=== PATIENT | female | born 1950 | race Caucasian/White ===

== ENCOUNTER 2018-09-15 10:30 | Inpatient (IN) | payer MEDICARE, MEDICAID ==
[2018-09-16] MEDS ORDERED: DEXTROMETHORPHAN HBR PO PRN (17:17)
[2018-09-16] MEDS ORDERED: Albuterol-Ipratrop 3 mg / 0.5 (3 ml) UD IH PRN (17:17)
[2018-09-16] MEDS ORDERED: Pneumococcal 23-Valent Vaccine IM ONE (17:42)
[2018-09-16] MEDS ORDERED: Influenza Vaccine (5 YR UP)/PF 60 MCG/0.5 ML SYR IM ONE ×2 (17:45→19:30)
[2018-09-16] MEDS: Budesonide 0.5 mg/2 ml Inhal Susp UD INH SCH ×2 (19:59→20:51)
[2018-09-16] MEDS ORDERED: Insulin Lispro (humaLOG) 100 Units/ml Inj SC SCH (22:00)
[2018-09-16] MEDS: Insulin Lispro (humaLOG) 100 Units/ml Inj SC SCH (22:00)
[2018-09-16] MEDS ORDERED: guaiFENesin DM 100 mg-10 mg/5 ml UD PO PRN (23:44)
[2018-09-17 06:22] LABS: BASO % 0.2 % (0.0-2.0); EOS # 0.2 K/uL (0.0-0.7); EOS % 2.2 % (0.0-4.0); HEMOGLOBIN 13.8 g/dL (12.0-16.0); LYMPH # 2.9 K/uL (1.0-4.3); LYMPH % 29.8 % (20.0-40.0); MEAN CELL VOLUME 84.8 fl (81.0-99.0); MEAN CORPUSCULAR HEMOGLOBIN 27.8 pg (27.0-31.0); MEAN CORPUSCULAR HGB CONC 32.8 g/dL (33.0-37.0); MEAN PLATELET VOLUME 8.1 fl (7.2-11.7); MONO # 0.6 K/uL (0.0-0.8); MONO % 6.7 % (0.0-10.0); NEUT # 5.8 K/uL (1.8-7.0); NEUT % 61.1 % (50.0-75.0); RBC 4.95 Mil/uL (3.80-5.20); RED CELL DISTRIBUTION WIDTH 13.2 % (11.5-14.5); WHITE BLOOD COUNT 9.6 K/uL (4.8-10.8)
[2018-09-17 06:31] VITALS: BMI 35.5
[2018-09-17 06:36] LABS: ALB/GLOB RATIO 1.2 (1.0-2.1); ALBUMIN 3.8 g/dL (3.5-5.0); ALT/SGPT 21 U/L (9-52); AST/SGOT 23 U/L (14-36); BLOOD UREA NITROGEN 22 mg/dl (7-17); GFR NON-AFRICAN AMERICAN > 60
[2018-09-17] MEDS: Insulin Lispro (humaLOG) 100 Units/ml Inj SC SCH ×4 (07:42→21:14)
[2018-09-17] MEDS: Insulin Detemir 100 Units/ml Inj SC SCH (07:43)
[2018-09-17] MEDS: Budesonide 0.5 mg/2 ml Inhal Susp UD INH SCH ×3 (08:13→20:01)
[2018-09-17] MEDS: Fluticasone-Salmeterol 250-50mcg Diskus IH SCH ×2 (08:47→17:57)
[2018-09-17] MEDS: Ranolazine 500 mg Extended Release Tablets PO SCH ×2 (08:48→17:58)
[2018-09-17] MEDS: Pantoprazole 40 mg EC Tab PO SCH (08:48)
[2018-09-17] MEDS: Enoxaparin 40 mg Syringe SC SCH (08:49)
[2018-09-17] MEDS ORDERED: Patient's Own Med (Arformoterol [Brovana] 15 MCG) IH SCH (09:00)
[2018-09-17] MEDS ORDERED: Pneumococcal 23-Valent Vaccine IM ONE (12:00)
[2018-09-17] MEDS: Influenza Vaccine 60 mcg/0.5 mL SYR (4YR UP) IM ONE ×2 (13:59)
--- NOTE | 2018-09-17 20:08 | CP.PCM.CON ---
History of Present Illness - History of Present Illness History of Present Illness: 67 year old female admitted to acute rehab with diagnosis of CVA, status post blurred vision and dizziness , with PMH of HTN, DM, CAD, CABG Review of Systems - Neurological Neurological: Disequilibrium, Dizziness, Other Visual Disturbances Past Patient History - Past Medical History & Family History Past Medical History?: Yes - Past Social History Smoking Status: Never Smoked - CARDIAC Hx Hypertension: Yes - PULMONARY Hx Respiratory Disorders: Yes Hx Asthma: Yes Hx Bronchitis: No Hx Chronic Obstructive Pulmonary Disease (COPD): Yes Hx Emphysema: No Hx Lung Cancer: No Hx Pneumonia: Yes Hx Pulmonary Edema: No Hx Pulmonary Embolism: No Hx Respiratory Aspiration: No Hx Respiratory Tract Infection: No Hx Sleep Apnea: No Hx Tuberculosis: No - NEUROLOGICAL Hx Neurological Disorder: Yes Hx Alzheimer's Disease: No HX Cerebrovascular Accident: Yes Hx Dementia: No Hx Dizziness: Yes Hx Meningitis: No Hx Migraine: No Hx Multiple Sclerosis: No Hx Paralysis: No Hx Parkinson's Disease: No Hx Seizures: No Hx Syncope: No Hx Transient Ischemic Attacks (TIA): No Hx Vertigo: No Other/Comment: [place] RIGHT SIDE AND BACK - HEENT Hx HEENT Problems: Yes Hx Blind: No Hx Cataracts: Yes Hx Deafness: No Hx Difficulty Chewing: No Hx Epistaxis: No Hx Glaucoma: No Hx Macular Degeneration: No Hx Sinusitis: No - RENAL Hx Chronic Kidney Disease: No Hx Dialysis: No Hx Kidney Stones: No Hx Neurogenic Bladder: No Hx Pyelonephritis: No Hx Renal (Kidney) Cancer: No Hx Renal Failure: No - ENDOCRINE/METABOLIC Hx Diabetes Mellitus Type 2: Yes - HEMATOLOGICAL/ONCOLOGICAL Hx Blood Disorders: No Hx AIDS: No Hx Anemia: No Hx Blood Transfusions: Yes Hx Blood Transfusion Reaction: No Hx Bruising: No Hx Cancer: No Hx Chemotherapy: No Hx Cirrhosis: No Hx Gum Bleeding: No Hx Hemophilia: No Hx Hepatitis A: No Hx Hepatitis B: No Hx Hepatitis C: No Hx Human Immunodeficiency Virus (HIV): No Hx Leukemia: No Hx Metastesis: No Hx Shingles: No Hx Sickle Cell Disease: No Hx Unexplained Bleeding: No Hx von Willebrand's Disease: No - INTEGUMENTARY Hx Dermatological Problems: Yes (FUNGUS FEET) Hx Basil Cell: No Hx Lester: No Hx Cellulitis: No Hx Eczema: No Hx Melanoma: No Hx Psoriasis: No Hx Squamous Cell: No - MUSCULOSKELETAL/RHEUMATOLOGICAL Hx Musculoskeletal Disorders: No Hx Arthritis: Yes Hx Back Pain: Yes Hx Degenerative Joint Disease: No Hx Falls: No Hx Fractures: No Hx Gout: No Hx Herniated Disk: No Hx Myasthenia Gravis: No Hx Osteoarthritis: No Hx Osteomyelitis: No Hx Osteoporosis: No Hx Rhabdomyolysis: No Hx Rheumatoid Arthritis: No Hx Spinal Stenosis: No Hx Unsteady Gait: Yes - GASTROINTESTINAL Hx Gastrointestinal Disorders: No Hx Bowel Surgery: Yes Hx Clostridium Difficile: No Hx Colitis: No Hx Colostomy: No Hx Constipation: Yes Hx Crohn's Disease: No Hx Diarrhea: No Hx Diverticulitis: No Hx Esophageal Varices: No Hx Fatty Liver Disease: No Hx Gall Bladder Disease: No Hx Gastritis: Yes Hx Gastroesophageal Reflux: Yes Hx Hemorrhoids: No Hx Ileostomy: No Hx Irritable Bowel: No Hx Liver Failure: No Hx Nausea: No Hx Pancreatitis: No HX Swallowing Problems: No Hx Ulcer: No Hx Vomiting: No Other/Comment: gb removed - GENITOURINARY/GYNECOLOGICAL Hx Genitourinary Disorders: No Hx Bladder Cancer: No Hx Bladder Stone: No Hx Cervical Cancer: No Hx Hematuria: No Hx Incontinence: No Hx Ovarian Cancer: No Hx Postmenopausal Bleeding: No Hx Reproductive Disorders: No Hx Sexually Transmitted Disorders: No Hx Uterine Cancer: No Hx Urinary Tract Infection: No - PSYCHIATRIC Hx Psychophysiologic Disorder: No Hx Anxiety: Yes Hx Bipolar Disorder: No Hx Depression: No Hx Emotional Abuse: No Hx Hallucinations: No Hx Panic Symptoms: No Hx Paranoia: No Hx Post Traumatic Stress Disorder: No Hx Psychosis: No Hx Physical Abuse: No Hx Schizophrenia: No Hx Sexual Abuse: No Hx Substance Use: No - SURGICAL HISTORY Hx Surgeries: Yes Hx Abdominal Aortic Aneurysm Repair: No Hx Amputation: No Hx Angiogram: No Hx Angioplasty: No Hx Appendectomy: No Hx Arteriovenous Shunt: No Hx Arthroscopy: No Hx Bile Duct Stent: No Hx Breast Biopsy: No Hx Cataract Extraction: No Hx Cardiac Catheterization: Yes Hx Carotid Endarterectomy: No Hx Section: No Hx Cholecystectomy: Yes Hx Coronary Artery Bypass Graft: No Hx Coronary Stent: No Hx Dilation and Curettage: No Hx Eye Surgery: No Hx Femoral-Popliteal Bypass Graft: No Hx Gastric Bypass Surgery: No Hx Herniorrhaphy: No Hx Hysterectomy: No Hx Joint Replacement: No Hx Kidney Transplant: No Hx Liver Transplant: No Hx Mastectomy: No Hx Musculoskeletal Surgery: No Hx Open Heart Surgery: Yes Hx Open Reduction Internal Fixation: No Hx Orthopedic Surgery: No Hx Parathyroidectomy: No Hx Penile Implant: No Hx Pulmonary Surgery: No Hx Splenectomy: No Hx Thyroidectomy: No Hx Tonsillectomy: No Hx Tubal Ligation: No Hx Valve Replacement: No Hx Vascular Surgery: No Hx Vascular Access Device: No Other/Comment: SOMETHING ON RIGHT SIDE OF ABDOMEN; CAN'T EXPLAIN PER DAUGHTER; ONLY RECEIVED 2 SUTURES - ANESTHESIA Hx Anesthesia: Yes Hx Anesthesia Reactions: No Hx Malignant Hyperthermia: No Has any member of the family had a problem w/ anesthesia?: No Meds Allergies/Adverse Reactions: Allergies Allergy/AdvReac Type Severity Reaction Status Date / Time No Known Allergies Allergy Verified 05/24/15 07:30 - Medications Medications: Current Medications Acetaminophen (Tylenol 325mg Tab) 650 mg PO Q6 PRN PRN Reason: .Pain (4-10) Albuterol/Ipratropium (Duoneb 3 Mg/0.5 Mg (3 Ml) Ud) 3 ml IH Q6 PRN PRN Reason: Cough and congestion Aspirin (Aspirin) 325 mg PO DAILY [facility] Last Admin: 09/17/18 08:49 Dose: 325 mg Atorvastatin Calcium (Lipitor) 40 mg PO HS [facility] Last Admin: 09/16/18 22:10 Dose: 40 mg Budesonide (Pulmicort Respules) 0.5 mg INH Q12 [facility] Last Admin: 09/17/18 19:29 Dose: 0.5 mg Clopidogrel Bisulfate (Plavix) 75 mg PO DAILY [facility] Last Admin: 09/17/18 08:48 Dose: 75 mg Docusate Sodium (Colace) 100 mg PO BID PRN PRN Reason: Constipation Enoxaparin Sodium (Lovenox) 40 mg SC DAILY [facility]; Protocol Last Admin: 09/17/18 08:49 Dose: 40 mg Guaifenesin/Dextromethorphan (Robitussin Dm) 5 ml PO Q4 PRN PRN Reason: Cough Insulin Detemir (Levemir) 6 units SC ACB [facility] Last Admin: 09/17/18 07:43 Dose: 6 unit Insulin Human Lispro (Humalog) 0 units SC ACHS [facility]; Protocol Last Admin: 09/17/18 17:57 Dose: 1 unit Lisinopril (Zestril) 10 mg PO DAILY [facility] Last Admin: 09/17/18 08:48 Dose: 10 mg Metformin HCl (Glucophage) 500 mg PO BIDWM [facility] Last Admin: 09/17/18 17:58 Dose: 500 mg Metoprolol Tartrate (Lopressor) 50 mg PO BID [facility] Last Admin: 09/17/18 17:57 Dose: 50 mg Montelukast Sodium (Singulair) 10 mg PO HS [facility] Last Admin: 09/16/18 22:10 Dose: 10 mg Pantoprazole Sodium (Protonix Ec Tab) 40 mg PO DAILY [facility] Last Admin: 09/17/18 08:48 Dose: 40 mg Ranolazine (Ranexa) 500 mg PO BID [facility] Last Admin: 09/17/18 17:58 Dose: 500 mg Fluticasone/Salmeterol (Advair Diskus 250/50) 1 puff IH BID [facility] Last Admin: 09/17/18 17:57 Dose: 1 puff Sitagliptin Phosphate (Januvia) 100 mg PO DAILY [facility] Last Admin: 09/17/18 08:48 Dose: 100 mg Physical Exam - Constitutional Appears: Well - Head Exam Head Exam: ATRAUMATIC, NORMAL INSPECTION, NORMOCEPHALIC - Eye Exam Eye Exam: EOMI, Normal appearance Pupil Exam: NORMAL ACCOMODATION, PERRL - ENT Exam ENT Exam: Mucous Membranes Moist, Normal Exam - Neck Exam Neck exam: Positive for: Normal Inspection - Respiratory Exam Respiratory Exam: Clear to Auscultation Bilateral, NORMAL BREATHING PATTERN - Cardiovascular Exam Cardiovascular Exam: REGULAR RHYTHM - GI/Abdominal Exam GI & Abdominal Exam: Normal Bowel Sounds - Rectal Exam Rectal Exam: NORMAL INSPECTION - Exam External exam: NORMAL EXTERNAL EXAM - Extremities Exam Extremities exam: Positive for: normal inspection - Back Exam Back exam: NORMAL INSPECTION - Neurological Exam Neurological exam: Alert - Psychiatric Exam Psychiatric exam: Normal Affect - Skin Skin Exam: Normal Color Results - Vital Signs Recent Vital Signs: Last Vital Signs Temp 97.4 F L 09/17/18 20:00 Pulse 70 09/17/18 20:00 Resp 20 09/17/18 20:00 BP 126/66 09/17/18 20:00 Pulse Ox 99 09/17/18 20:00 - Labs Result Diagrams: 09/17/18 05:35 09/17/18 05:35 Labs: Laboratory Results - last 24 hr 09/16/18 09/17/18 09/17/18 20:53 05:35 05:35 WBC 9.6 RBC 4.95 Hgb 13.8 Hct 42.0 MCV 84.8 MCH 27.8 MCHC 32.8 L RDW 13.2 Plt Count 222 MPV 8.1 Neut % (Auto) 61.1 Lymph % (Auto) 29.8 [place] % (Auto) 6.7 Eos % (Auto) 2.2 Baso % (Auto) 0.2 Neut # (Auto) 5.8 Lymph # (Auto) 2.9 [place] # (Auto) 0.6 Eos # (Auto) 0.2 Baso # (Auto) 0.0 Sodium 137 Potassium 4.1 Chloride 95 L Carbon Dioxide 28 Anion Gap 18 BUN 22 H Creatinine 0.8 Est GFR ( Amer) > 60 Est GFR (Non-Af Amer) > 60 POC Glucose (mg/dL) 213 H Random Glucose 201 H Calcium 10.0 Total Bilirubin 0.5 AST 23 ALT 21 Alkaline Phosphatase 143 H Total Protein 7.2 Albumin 3.8 Globulin 3.3 Albumin/Globulin Ratio 1.2 09/17/18 09/17/18 09/17/18 06:24 11:07 15:38 WBC RBC Hgb Hct MCV MCH MCHC RDW Plt Count MPV Neut % (Auto) Lymph % (Auto) [place] % (Auto) Eos % (Auto) Baso % (Auto) Neut # (Auto) Lymph # (Auto) [place] # (Auto) Eos # (Auto) Baso # (Auto) Sodium Potassium Chloride Carbon Dioxide Anion Gap BUN Creatinine Est GFR ( Amer) Est GFR (Non-Af Amer) POC Glucose (mg/dL) 176 H 289 H 194 H Random Glucose Calcium Total Bilirubin AST ALT Alkaline Phosphatase Total Protein Albumin Globulin Albumin/Globulin Ratio Assessment & Plan (1) CVA (cerebral vascular accident) Assessment and Plan: Also history of DM, HTN, CAD, CABG. plan for physical, occupational, rec and speech therapy program. To write for overall plan of care Status: Acute
--- NOTE | 2018-09-17 20:12 | PCM.OPOC ---
Physiatry Overall Plan of Care - Overall Plan of Care Estimated Length of Stay in Weeks: 3 Rehab Impairment: Mobility, Gait, Cognition, Speech, Balance, Coordination Rehab/Medical Prognosis: Fair - Anticipated Interventions Physical Therapy:: Yes Occupational Therapy:: Yes Speech Therapy:: Yes Recreational Therapy:: Yes - Therapy Goals Bed Mobility: Independent Ambulation: Supervision Functional Positional Changes:: Independent - Functional Outcomes Functional Outcomes: fair - Discharge Plan Identification of Barriers to Discharge: Home Situation Discharge Destination: Home
[2018-09-18] MEDS: Sodium Chloride 0.9% 500 ML IV SCH ×2 (01:13→06:54)
--- NOTE | 2018-09-18 06:57 | HP ---
HISTORY OF PRESENT ILLNESS: This is a 67-year-old female with history of multiple medical problems who was admitted to acute rehabilitation floor at [facility] after patient sustained a CVA. The patient denied to have any chest pain, shortness of breath. The patient speaks only [place] language, and we have her daughter as sales enablement lead during this encounter. Other review of systems is negative. ALLERGIES: NO KNOWN ALLERGY. MEDICATIONS: Reviewed as per MAR and ordered. SOCIAL HISTORY: No history of smoking, EtOH, or substance abuse. FAMILY HISTORY: Not contributory. PAST MEDICAL HISTORY: CVA, hypertension, type 2 diabetes mellitus, obstructive lung disease, coronary artery disease, status post coronary artery bypass graft, hypercholesterolemia, and hypertension. PHYSICAL EXAMINATION: GENERAL: The patient is not in any cardiopulmonary distress at the time of this examination. VITAL SIGNS: Blood pressure 126/66, temperature 97.4, respiratory rate 20, and pulse 70. HEENT: Pupils equal and reactive to light. Normal-appearing mucosa of the conjunctivae, oropharynx, and nasal membrane mucosa. NECK: Supple. No JVD. No carotid bruit. No lymph node. No thyromegaly. CHEST AND LUNGS: Bilateral symmetrical expansion. Good air exchange. No rales, no rhonchi. CARDIOVASCULAR SYSTEM: PMI not localized. S1, S2. No additional sounds. ABDOMEN: Normoactive bowel sounds. No tenderness. No organomegaly. No masses. EXTREMITIES: No cyanosis, no clubbing, no edema. CENTRAL NERVOUS SYSTEM: The patient is alert, awake, oriented x2, and moves all extremities equally. The patient has possible right temporal visual field defect. ASSESSMENT: Cerebrovascular accident, hypertension, type 2 diabetes mellitus, hypercholesterolemia, coronary artery disease, status post coronary artery bypass graft. PLAN: Continue current management and medications, and continue physical therapy and occupational therapy. Breanna Connolly MD
[2018-09-18] MEDS: Insulin Lispro (humaLOG) 100 Units/ml Inj SC SCH ×4 (06:59→21:27)
[2018-09-18] MEDS: Insulin Detemir 100 Units/ml Inj SC SCH (07:01)
[2018-09-18] MEDS: Budesonide 0.5 mg/2 ml Inhal Susp UD INH SCH ×2 (07:30→20:01)
[2018-09-18] MEDS: Ranolazine 500 mg Extended Release Tablets PO SCH ×2 (09:00→17:28)
[2018-09-18] MEDS: Fluticasone-Salmeterol 250-50mcg Diskus IH SCH ×2 (10:00→17:28)
[2018-09-18] MEDS: Enoxaparin 40 mg Syringe SC SCH (10:10)
[2018-09-18] MEDS: Pantoprazole 40 mg EC Tab PO SCH (10:16)
--- NOTE | 2018-09-18 12:09 | CP.PCM.PN ---
Subjective - Date & Time of Evaluation Date of Evaluation: 09/18/18 Time of Evaluation: 11:00 - Subjective Subjective: no acute complaints at present Objective - Vital Signs/Intake and Output Vital Signs (last 24 hours): Temp Pulse Resp BP Pulse Ox 98.1 F 61 18 108/80 96 09/18/18 07:36 09/18/18 10:13 09/18/18 07:36 09/18/18 10:13 09/18/18 07:36 Intake and Output: 09/18/18 09/18/18 06:59 18:59 Intake Total 800 Balance 800 - Medications Medications: Current Medications Acetaminophen (Tylenol 325mg Tab) 650 mg PO Q6 PRN PRN Reason: .Pain (4-10) Albuterol/Ipratropium (Duoneb 3 Mg/0.5 Mg (3 Ml) Ud) 3 ml IH Q6 PRN PRN Reason: Cough and congestion Aspirin (Aspirin) 325 mg PO DAILY [facility] Last Admin: 09/18/18 09:00 Dose: 325 mg Atorvastatin Calcium (Lipitor) 40 mg PO HS [facility] Last Admin: 09/17/18 21:26 Dose: 40 mg Budesonide (Pulmicort Respules) 0.5 mg INH Q12 [facility] Last Admin: 09/18/18 07:30 Dose: 0.5 mg Clopidogrel Bisulfate (Plavix) 75 mg PO DAILY [facility] Last Admin: 09/18/18 09:00 Dose: 75 mg Docusate Sodium (Colace) 100 mg PO BID PRN PRN Reason: Constipation Enoxaparin Sodium (Lovenox) 40 mg SC DAILY [facility]; Protocol Last Admin: 09/18/18 10:10 Dose: 40 mg Guaifenesin/Dextromethorphan (Robitussin Dm) 5 ml PO Q4 PRN PRN Reason: Cough Insulin Detemir (Levemir) 6 units SC ACB [facility] Last Admin: 09/18/18 07:01 Dose: 6 unit Insulin Human Lispro (Humalog) 0 units SC ACHS [facility]; Protocol Last Admin: 09/18/18 06:59 Dose: 1 unit Lisinopril (Zestril) 10 mg PO DAILY [facility] Last Admin: 09/17/18 08:48 Dose: 10 mg Metformin HCl (Glucophage) 500 mg PO BIDWM [facility] Last Admin: 09/18/18 08:00 Dose: 500 mg Metoprolol Tartrate (Lopressor) 50 mg PO BID [facility] Last Admin: 09/18/18 10:13 Dose: 50 mg Montelukast Sodium (Singulair) 10 mg PO HS [facility] Last Admin: 09/17/18 21:26 Dose: 10 mg Pantoprazole Sodium (Protonix Ec Tab) 40 mg PO DAILY [facility] Last Admin: 09/18/18 10:16 Dose: 40 mg Ranolazine (Ranexa) 500 mg PO BID [facility] Last Admin: 09/18/18 09:00 Dose: 500 mg Fluticasone/Salmeterol (Advair Diskus 250/50) 1 puff IH BID [facility] Last Admin: 09/18/18 10:00 Dose: 1 puff Sitagliptin Phosphate (Januvia) 100 mg PO DAILY [facility] Last Admin: 09/18/18 09:00 Dose: 100 mg - Labs Labs: 09/17/18 05:35 09/17/18 05:35 - Constitutional Appears: Well - Head Exam Head Exam: ATRAUMATIC, NORMAL INSPECTION, NORMOCEPHALIC - Eye Exam Eye Exam: EOMI, Normal appearance, PERRL Pupil Exam: NORMAL ACCOMODATION - ENT Exam ENT Exam: Mucous Membranes Moist, Normal Exam - Neck Exam Neck Exam: Full ROM, Normal Inspection - Respiratory Exam Respiratory Exam: NORMAL BREATHING PATTERN - Cardiovascular Exam Cardiovascular Exam: REGULAR RHYTHM - GI/Abdominal Exam GI & Abdominal Exam: Soft, Normal Bowel Sounds - Rectal Exam Rectal Exam: NORMAL INSPECTION - Exam External exam: NORMAL EXTERNAL EXAM - Extremities Exam Extremities Exam: Full ROM, Normal Capillary Refill - Back Exam Back Exam: NORMAL INSPECTION - Neurological Exam Neurological Exam: Alert Neuro motor strength exam: Left Upper Extremity: 3, Right Upper Extremity: 3, Left Lower Extremity: 3, Right Lower Extremity: 3 - Psychiatric Exam Psychiatric exam: Normal Affect - Skin Skin Exam: Dry Assessment and Plan (1) CVA (cerebral vascular accident) Assessment & Plan: plan for physical, occupational, rec and speech therapy discussed with daughter Status: Acute
[2018-09-19] MEDS: Insulin Detemir 100 Units/ml Inj SC SCH (07:11)
[2018-09-19] MEDS: Insulin Lispro (humaLOG) 100 Units/ml Inj SC SCH ×4 (07:14→21:30)
[2018-09-19] MEDS: Budesonide 0.5 mg/2 ml Inhal Susp UD INH SCH ×3 (08:23→19:08)
[2018-09-19] MEDS: Fluticasone-Salmeterol 250-50mcg Diskus IH SCH ×2 (08:57→17:27)
[2018-09-19] MEDS: Ranolazine 500 mg Extended Release Tablets PO SCH ×2 (08:58→17:30)
[2018-09-19] MEDS: Enoxaparin 40 mg Syringe SC SCH (08:58)
[2018-09-19] MEDS: Pantoprazole 40 mg EC Tab PO SCH (08:59)
[2018-09-20 06:57] LABS: HEMOGLOBIN 14.1 g/dL (12.0-16.0); MEAN CELL VOLUME 85.1 fl (81.0-99.0); MEAN CORPUSCULAR HEMOGLOBIN 28.6 pg (27.0-31.0); MEAN CORPUSCULAR HGB CONC 33.6 g/dL (33.0-37.0); RBC 4.94 Mil/uL (3.80-5.20); RED CELL DISTRIBUTION WIDTH 13.1 % (11.5-14.5); WHITE BLOOD COUNT 10.3 K/uL (4.8-10.8)
[2018-09-20] MEDS: Insulin Detemir 100 Units/ml Inj SC SCH (07:09)
[2018-09-20 07:12] LABS: BLOOD UREA NITROGEN 19 mg/dl (7-17); CALCIUM 9.9 mg/dL (8.4-10.2); GFR NON-AFRICAN AMERICAN > 60
[2018-09-20] MEDS: Insulin Lispro (humaLOG) 100 Units/ml Inj SC SCH ×4 (07:13→21:24)
[2018-09-20] MEDS: Fluticasone-Salmeterol 250-50mcg Diskus IH SCH ×2 (09:16→17:01)
[2018-09-20] MEDS: Enoxaparin 40 mg Syringe SC SCH (09:16)
[2018-09-20] MEDS: Ranolazine 500 mg Extended Release Tablets PO SCH ×2 (09:18→17:02)
[2018-09-20] MEDS: Multivitamin With Minerals Tab PO SCH (09:18)
[2018-09-20] MEDS: Pantoprazole 40 mg EC Tab PO SCH (09:19)
--- NOTE | 2018-09-20 10:38 | CP.PCM.PN ---
Subjective - Date & Time of Evaluation Date of Evaluation: 09/19/18 Time of Evaluation: 12:00 - Subjective Subjective: patient with generalized weakness , no acute complaints Objective - Vital Signs/Intake and Output Vital Signs (last 24 hours): Temp Pulse Resp BP Pulse Ox 97.9 F 68 19 126/65 99 09/20/18 08:54 09/20/18 09:19 09/20/18 08:54 09/20/18 09:19 09/20/18 08:54 - Medications Medications: Current Medications Acetaminophen (Tylenol 325mg Tab) 650 mg PO Q6 PRN PRN Reason: .Pain (4-10) Albuterol/Ipratropium (Duoneb 3 Mg/0.5 Mg (3 Ml) Ud) 3 ml IH Q6 PRN PRN Reason: Cough and congestion Aspirin (Aspirin) [address] [facility] Last Admin: 09/20/18 09:18 Dose: 325 mg Atorvastatin Calcium (Lipitor) [address] [facility] Last Admin: 09/19/18 21:25 Dose: 40 mg Budesonide (Pulmicort Respules) 0.[address] [facility] Last Admin: 09/19/18 19:08 Dose: 0.5 mg Clopidogrel Bisulfate (Plavix) [address] [facility] Last Admin: 09/20/18 09:18 Dose: 75 mg Docusate Sodium (Colace) 100 mg PO BID PRN PRN Reason: Constipation Last Admin: 09/18/18 17:28 Dose: 100 mg Guaifenesin/Dextromethorphan (Robitussin Dm) 5 ml PO Q4 PRN PRN Reason: Cough Insulin Detemir (Levemir) [address] [facility] Last Admin: 09/20/18 07:09 Dose: 6 unit Insulin Human Lispro (Humalog) [address] [facility]; Protocol Last Admin: 09/20/18 07:13 Dose: 2 unit Lisinopril (Zestril) [address] [facility] Last Admin: 09/20/18 09:19 Dose: 10 mg Metformin HCl (Glucophage) [address] [facility] Last Admin: 09/20/18 08:18 Dose: 500 mg Metoprolol Tartrate (Lopressor) [address] [facility] Last Admin: 09/20/18 09:17 Dose: 50 mg Montelukast Sodium (Singulair) [address] [facility] Last Admin: 09/19/18 21:25 Dose: 10 mg Multivitamins/Minerals (Therapeutic-M Tab) [address] [facility] Last Admin: 09/20/18 09:18 Dose: 1 tab Pantoprazole Sodium (Protonix Ec Tab) [address] [facility] Last Admin: 09/20/18 09:19 Dose: 40 mg Ranolazine (Ranexa) [address] [facility] Last Admin: 09/20/18 09:18 Dose: 500 mg Fluticasone/Salmeterol (Advair Diskus 250/50) [address] [facility] Last Admin: 09/20/18 09:16 Dose: 1 puff Sitagliptin Phosphate (Januvia) [address] [facility] Last Admin: 09/20/18 09:19 Dose: 100 mg - Labs Labs: 09/20/18 05:30 09/20/18 05:30 - Constitutional Appears: Well - Head Exam Head Exam: ATRAUMATIC, NORMAL INSPECTION, NORMOCEPHALIC - Eye Exam Eye Exam: EOMI, Normal appearance, PERRL Pupil Exam: NORMAL ACCOMODATION, PERRL - ENT Exam ENT Exam: Mucous Membranes Moist, Normal Exam - Neck Exam Neck Exam: Full ROM, Normal Inspection - Respiratory Exam Respiratory Exam: Clear to Ausculation Bilateral, NORMAL BREATHING PATTERN - Cardiovascular Exam Cardiovascular Exam: REGULAR RHYTHM - GI/Abdominal Exam GI & Abdominal Exam: Normal Bowel Sounds - Rectal Exam Rectal Exam: NORMAL INSPECTION - Exam External exam: NORMAL EXTERNAL EXAM - Extremities Exam Extremities Exam: Full ROM, Normal Capillary Refill, Normal Inspection - Back Exam Back Exam: NORMAL INSPECTION - Neurological Exam Neurological Exam: Alert Neuro motor strength exam: Left Upper Extremity: 3, Right Upper Extremity: 3, Left Lower Extremity: 3, Right Lower Extremity: 3 - Psychiatric Exam Psychiatric exam: Normal Affect - Skin Skin Exam: Normal Color Assessment and Plan (1) CVA (cerebral vascular accident) Assessment & Plan: plan for physical, occupational, rec and speech therapy for range of motion, strengthening, transfers and gait training Status: Acute
[2018-09-20] MEDS: Budesonide 0.5 mg/2 ml Inhal Susp UD INH SCH ×2 (13:14→20:10)
--- NOTE | 2018-09-20 21:42 | PN ---
DATE: 09/19/2018 LATE ENTRY FOR DAILY PROGRESS NOTE SUBJECTIVE: The patient was seen on 09/19/2018. She was not in any cardiopulmonary distress. The patient is cooperative to physical therapy and occupational therapy. PHYSICAL EXAMINATION: VITAL SIGNS: Blood pressure was 111/70, temperature 96.8, respiratory rate 20, and pulse 64. HEENT: Pupils are equal and reactive to light. Normal-appearing mucosa of the conjunctivae, oropharynx and nasal membrane mucosa. NECK: Supple. No JVD. No carotid bruit. No lymph node. No thyromegaly. CHEST AND LUNGS: Bilateral symmetrical expansion. Good air exchange. No rales. No rhonchi. CARDIOVASCULAR SYSTEM: PMI not localized. S1 and S2. No additional sounds. ABDOMEN: Normoactive bowel sounds. No tenderness. No organomegaly. No masses. EXTREMITIES: No cyanosis, no clubbing, no edema. CENTRAL NERVOUS SYSTEM: Alert, awake, oriented x2. No neurological deficit could be appreciated except for visual field defect mostly on the right side. ASSESSMENT: Cerebrovascular accident, hypertension, type 2 diabetes mellitus, coronary artery disease, status post coronary artery bypass graft. PLAN: Continue current medications. Continue physical therapy and occupational therapy. We will add multivitamin. Continue aspirin and Plavix. Breanna Connolly MD
[2018-09-21] MEDS: Insulin Lispro (humaLOG) 100 Units/ml Inj SC SCH ×4 (07:21→21:00)
[2018-09-21] MEDS: Insulin Detemir 100 Units/ml Inj SC SCH (07:22)
[2018-09-21] MEDS: Budesonide 0.5 mg/2 ml Inhal Susp UD INH SCH ×3 (08:16→20:41)
[2018-09-21] MEDS: Ranolazine 500 mg Extended Release Tablets PO SCH ×3 (08:57→17:11)
[2018-09-21] MEDS: Multivitamin With Minerals Tab PO SCH (08:57)
[2018-09-21] MEDS: Pantoprazole 40 mg EC Tab PO SCH (08:57)
[2018-09-21] MEDS: Enoxaparin 40 mg Syringe SC SCH (08:57)
[2018-09-21] MEDS: Fluticasone-Salmeterol 250-50mcg Diskus IH SCH ×2 (09:24→17:09)
[2018-09-22] MEDS: Insulin Lispro (humaLOG) 100 Units/ml Inj SC SCH ×4 (06:30→21:50)
[2018-09-22] MEDS: Insulin Detemir 100 Units/ml Inj SC SCH (06:48)
[2018-09-22] MEDS: Budesonide 0.5 mg/2 ml Inhal Susp UD INH SCH ×3 (07:36→20:03)
[2018-09-22] MEDS: Fluticasone-Salmeterol 250-50mcg Diskus IH SCH ×2 (09:10→16:54)
[2018-09-22] MEDS: Multivitamin With Minerals Tab PO SCH (09:10)
[2018-09-22] MEDS: Enoxaparin 40 mg Syringe SC SCH (09:11)
[2018-09-22] MEDS: Pantoprazole 40 mg EC Tab PO SCH (09:11)
[2018-09-22] MEDS: Ranolazine 500 mg Extended Release Tablets PO SCH ×2 (09:11→16:54)
--- NOTE | 2018-09-22 23:09 | PN ---
DATE: 09/21/2018 SUBJECTIVE: The patient was seen, 09/21/2018. She is cooperating with physical therapy and occupational therapy. PHYSICAL EXAMINATION: VITAL SIGNS: Blood pressure was 114/53, temperature 97.7, respiratory rate 20 and pulse 70. HEENT: Pupils equal, reactive to light. Normal-appearing mucosa of the conjunctivae, oropharynx and nasal membrane mucosa. NECK: Supple. No JVD. No carotid bruit. No lymph node. No thyromegaly. CHEST AND LUNGS: Bilateral symmetrical expansion. Good air exchange. No rales, no rhonchi. CARDIOVASCULAR SYSTEM: PMI not localized. S1, S2. No additional sounds. ABDOMEN: Normoactive bowel sounds. No tenderness. No organomegaly. No masses. EXTREMITIES: No cyanosis, no clubbing, no edema. CENTRAL NERVOUS SYSTEM: Alert, awake, oriented x2, and the patient has left peripheral visual field defect. ASSESSMENT: Cerebrovascular accident, hypertension, type 2 diabetes mellitus, hypercholesterolemia. PLAN: Continue current medications and physical therapy and occupational therapy. Discussed the patient's condition with the patient's at the bedside. Breanna Connolly MD
[2018-09-23] MEDS: Insulin Detemir 100 Units/ml Inj SC SCH (06:58)
[2018-09-23] MEDS: Insulin Lispro (humaLOG) 100 Units/ml Inj SC SCH ×4 (06:59→21:23)
[2018-09-23] MEDS: Budesonide 0.5 mg/2 ml Inhal Susp UD INH SCH ×3 (07:50→19:19)
[2018-09-23] MEDS: Fluticasone-Salmeterol 250-50mcg Diskus IH SCH ×2 (08:32→17:21)
[2018-09-23] MEDS: Multivitamin With Minerals Tab PO SCH (08:32)
[2018-09-23] MEDS: Pantoprazole 40 mg EC Tab PO SCH (08:33)
[2018-09-23] MEDS: Enoxaparin 40 mg Syringe SC SCH (08:33)
[2018-09-23] MEDS: Ranolazine 500 mg Extended Release Tablets PO SCH ×2 (08:33→17:23)
--- NOTE | 2018-09-23 12:12 | PCM.PSYTMC ---
Acute Rehab Team Conference - - Vital Signs: Vital Signs (Last 8 Hours): Vital Signs 09/23/18 09/23/18 08:19 08:32 Temperature 97.9 F Pulse Rate 53 L 53 L Respiratory 19 Rate Blood Pressure 113/57 L 113/57 L O2 Sat by Pulse 96 Oximetry Pain: 0 - Precautions: Precautions: Fall Prevention - Medications/Other Issues: Comment: -left side neglect. -uncontrolled diabetes. -ineffective teaching with patient and family - Consults: Comment: Dr. Guzmán - Physiatry - Skin: Incision Site: n/a - Toileting: Toileting: Minimal Assistance - Bladder Management: Bladder Pattern: Normal Voiding Method: Toilet Bladder Management: Minimal Assistance - Transfers: Transfers: Minimal Assistance - ADL's: ADL's: Minimal Assistance - Pain Management: Other Intervention:: -Tylenol 650 mg prn pain scale 4-10. -Nonpharmacological intervention for pain scale 1-3 - Patient/Family Teaching: Other Intervention:: -Teach patient and family about her diagnosis, medication, blood sugar management, and safety. - Goals/Time Frame: Comment: Maintain a safety environment for the patient. Reinforce education about diagnosis, medication, and diet. Until next team conference or discharge. - Provider: Registered Nurse:: Tabatha Davis Physical Therapy - Bed Mobility Bed Mobility: Verbal Cues, Contact Guard - Transfers Wheelchair to Mat: Verbal Cues, Contact Guard Sit to Stand: Verbal Cues, Contact Guard - Ambulation Level of Assistance: Verbal Cues, Contact Guard, Minimal Assistance Distance (ft.): 130 Assistive Devices: Single point cane, Rolling Walker - Stair Negotiation Stairs: Level of Assistance: Verbal Cues, Contact Guard Number of Stairs: 12 Handrails: Left Stairs: Assistive Devices: Single point cane - Standing Balance Static Stand: Supervision - Insight/Carryover Insight/Carryover: Fair - Patient/Family Education Comment: POC, safety, d/c recommendations. Family education for CVA recovery (Family refuses to tell pt of dx of CVA) - Assessment/Plan Assessment: pt participated in PT tx session focusing on BLE strengthening exercises, balance and endurance activities, and functional mobility training. Pt with increased unsteadiness when ambualting with SPC. Recommmend RW for mobility at this time. Pt will continue to benefit from skilled PT intervention to address deficits, reduce fall risk, and maximize functional independence. - Goals Timeframe: 2 weeks Goals: Sit < > supine mod I. Sit < > stand transfers mod I with RW. Pt will ambulate 200 ft mod I with RW. Pt will ascend/descend flight of stairs with supervision using handrail - Provider Physical Therapist:: Fina Ching License Number:: [id number] Occupational Therapy - Arousal/Attention/Orientation Level of Consciousness: Awake, Alert Patient Orientation: Person, Place, Time Assessment Comment: +ROMANIAN language--translation with daughter - ADL/IADL Self Feeding: Independent, Set-up Help Grooming: Independent, Set-up Help Bathing-Upper Ext: Supervision, Verbal Cues, Set-up Help Bathing-Lower Ext: Verbal Cues, Set-up Help, Minimal Assistance Dressing-Upper Ext: Supervision, Verbal Cues, Set-up Help Dressing-Lower Ext: Verbal Cues, Set-up Help, Minimal Assistance - Sitting Balance Static Sitting: Independent without upper extremity support Dynamic Sitting: Reaches across midline, Reaches out of base of support, Reaches within base of support, Requires supervision - Transfers Wheelchair to Bed Transfers: Supervision, Verbal Cues, Set-up Help, Contact Guard Toilet Transfers: Supervision, Verbal Cues, Set-up Help, Contact Guard Comment: shower transfer: CG/Min assist and verbal cues - Wheelchair Management Level of Assistance: Not Applicable - Upper Extremity Status Right Upper Extremity Comment: AROm is WFLS Left Upper Extremity Comment: AROM is WFLS - Pain Pain (assessed during therapy session): 0 - Insight/Carryover Insight/Carryover: Fair - Patient/Family Education Comment: -adl, transfers, functional mobility and Iadls. -caregiver ed as related to deficits, goals & progress. -strategies to compensate for L visual field cut. -safety, maneuvering to L , attending to obstacles. -pt may benefit from 3 in one commode--to further assess as pt progresses. -pt's daughter/ appears non-chalant with irrevelant comments during education - Assessment/Plan Assessment: Pt is a 67 year Sinhala speaking female with dx: acute CVA. *Precautions: impaired L visual field, fall/cardiac. Pt with the following impairments: L periperal vision, L inattention, impaired standing balance/tolerance, impaired endurance/overall strength, overall endurance/activity tolerance, impaired vision, impaired safety---which impact on self care, transfers/mobility and Iadls. Pt demonstrates improve function in self care, transfers, turns/maneuvers uisng RW--but continues to need verbal cues toturn head to L fo safe turns. Pt completes with greater I when turn hae to L side,. Pt will continue to benefit from skilled OT to maximize function in self care, + caregiver ed, DME needs assessment for safe transition home with services. Goals: *Supervision for self care, transfers/mobility, daily tasks. *caregiver to be I assisting/cueing pt with self care/daily routines, functional transfers/mobility and Iadls. - Goals Timeframe: 1 week Comment: *FEEDING: Mod I. *GROOMING: Supervision/standing @ sink. *BATHING: Supervsion/setup seated; stnding intermittently. *UPPER BODY DRESSING: I/setup. *LOWER BODY DRESSING: I/setup. *TOILETING: Supervsion/setup--cues. *CAREGIVER ED: Pt's caregiver to be I assisting pt wth daily living tasks. *TRANSFERS:<- >bed, commode, chair and other surfaces with Supervison. *COMPENATORY STRATEGIES FOR L VISUAL CUT: ptto turn head with Supervision/verbal cues to safely complete self care, transfers/mobility - Provider Occupational Therapist:: Jhoana Carroll License Number: [id number] Recreational Therapy - Participation Participation: Participates in Individual and/or Group Sessions, Monitors His/Her Own Leisure Time - Attendance Attendance: 3-5 times per week - Activities Leisure Activities: Cards and Games - Socialization Level of Socialization: Initiates/interacts with caregivers but not with peer - Assessment Assessment/Plan: Pt is agreeable to participate in 1:1 and group recreation therapy sessions following verbal cues for encouragement. Pt participated in group bingo task with peers requiring visual aids for number recognition and visual scanning. Pt also participated in coloring task to improve on visual awareness and scanning. Pt requires supervision-min A with all leisure tasks. Pt's daughter educated on benefits of coloring task and other leisure tasks to improve pt's visual awareness and activity tolerance level. Will continue to encourage throughout stay on unit. Problems Currently Limiting Participation: decrease activity tolerance level, decrease leisure awareness level, L side visual deficits Goals and Time Frame: Pt will be encouraged to participate in 1:1 and group recreation therapy sessions 3-5x week to improve leisure awareness level, activity tolerance level, arousal level, and command following by date of discharge. - Provider Therapist: Nikkie Acosta Nutrition - Current Diet Current Diet/Supplement/Feedings: Moderate consistent CHO low fat/low cholesterol thin liquids. glucerna shake 8 ounces 2 per day(440 kcal and 20 grams of protein) - Appetite Percent Meal Consumed: 50-74% - Assessment/Goals/Time Frame Assessments/Goals/Time Frame: Pt at high nutritional risk. goal: Patient will consume 75% of their meals within 2 days. Follow-up due on 09/23/2018 - Provider Provider: Garima Henderson Case Management - Psychosocial Assessment Support Systems: Aga Vergara (daughter) - [phone] Psychological Interventions/Needs: Patient is alert and oriented. Patient's family refused translation services and has been translating for patient. Discharge Concerns: Patient's family wants to sign pt out AMA Patient/Family Meeting: CM met with patient and rehab team Intervention/Goal/Outcome: 1. Goal: Supervision 2. Plan: home with VNS 3. Patient's family is likely signing patient out AMA and wants to follow up with neuro outpatient and take pt to outpatient PT/OT at [facility] - Discharge Plan Discharge Plan: Home with significant other/family - Provider Provider: Shelby Patel License Number: [id number]
--- NOTE | 2018-09-23 13:13 | CP.PCM.PN ---
Subjective - Date & Time of Evaluation Date of Evaluation: 09/23/18 Time of Evaluation: 12:00 - Subjective Subjective: no acute neck or back pain Objective - Vital Signs/Intake and Output Vital Signs (last 24 hours): Temp Pulse Resp BP Pulse Ox 97.9 F 53 L 19 113/57 L 96 09/23/18 08:19 09/23/18 08:32 09/23/18 08:19 09/23/18 08:32 09/23/18 08:19 - Medications Medications: Current Medications Acetaminophen (Tylenol 325mg Tab) 650 mg PO Q6 PRN PRN Reason: .Pain (4-10) Albuterol/Ipratropium (Duoneb 3 Mg/0.5 Mg (3 Ml) Ud) 3 ml IH Q6 PRN PRN Reason: Cough and congestion Aspirin (Aspirin) 325 mg PO DAILY [facility] Last Admin: 09/23/18 08:33 Dose: 325 mg Atorvastatin Calcium (Lipitor) 40 mg PO HS [facility] Last Admin: 09/22/18 21:48 Dose: 40 mg Budesonide (Pulmicort Respules) 0.5 mg INH Q12 [facility] Last Admin: 09/23/18 07:50 Dose: 0.5 mg Clopidogrel Bisulfate (Plavix) 75 mg PO DAILY [facility] Last Admin: 09/23/18 08:33 Dose: 75 mg Docusate Sodium (Colace) 100 mg PO BID PRN PRN Reason: Constipation Last Admin: 09/18/18 17:28 Dose: 100 mg Enoxaparin Sodium (Lovenox) 40 mg SC DAILY [facility] [place]; Protocol Last Admin: 09/23/18 08:33 Dose: 40 mg Guaifenesin/Dextromethorphan (Robitussin Dm) 5 ml PO Q4 PRN PRN Reason: Cough Insulin Detemir (Levemir) 6 units SC ACB [facility] [place] Last Admin: 09/23/18 06:58 Dose: 6 unit Insulin Human Lispro (Humalog) 0 units SC ACHS [facility]; Protocol Last Admin: 09/23/18 12:48 Dose: Not Given Lisinopril (Zestril) 10 mg PO DAILY [facility] [place] Last Admin: 09/23/18 08:32 Dose: 10 mg Metformin HCl (Glucophage) 500 mg PO BIDWM [facility] [place] Last Admin: 09/23/18 08:32 Dose: 500 mg Metoprolol Tartrate (Lopressor) 50 mg PO BID [facility] [place] Last Admin: 09/23/18 08:32 Dose: 50 mg Montelukast Sodium (Singulair) 10 mg PO HS [facility] Last Admin: 09/22/18 21:48 Dose: 10 mg Multivitamins/Minerals (Therapeutic-M Tab) 1 tab PO DAILY [facility] [place] Last Admin: 09/23/18 08:32 Dose: 1 tab Pantoprazole Sodium (Protonix Ec Tab) 40 mg PO DAILY [facility] Last Admin: 09/23/18 08:33 Dose: 40 mg Ranolazine (Ranexa) 500 mg PO BID [facility] Last Admin: 09/23/18 08:33 Dose: 500 mg Fluticasone/Salmeterol (Advair Diskus 250/50) 1 puff IH BID [facility] Last Admin: 09/23/18 08:32 Dose: 1 puff Sitagliptin Phosphate (Januvia) 100 mg PO DAILY [facility] Last Admin: 09/23/18 08:32 Dose: 100 mg - Labs Labs: 09/20/18 05:30 09/20/18 05:30 - Constitutional Appears: Well - Head Exam Head Exam: ATRAUMATIC, NORMAL INSPECTION - Eye Exam Eye Exam: EOMI, Normal appearance, PERRL Pupil Exam: NORMAL ACCOMODATION - ENT Exam ENT Exam: Mucous Membranes Moist, Normal Exam - Neck Exam Neck Exam: Normal Inspection - Respiratory Exam Respiratory Exam: NORMAL BREATHING PATTERN - Cardiovascular Exam Cardiovascular Exam: REGULAR RHYTHM - GI/Abdominal Exam GI & Abdominal Exam: Soft, Normal Bowel Sounds - Rectal Exam Rectal Exam: NORMAL INSPECTION - Exam External exam: NORMAL EXTERNAL EXAM - Extremities Exam Extremities Exam: Full ROM, Normal Capillary Refill, Normal Inspection - Back Exam Back Exam: NORMAL INSPECTION - Neurological Exam Neurological Exam: Alert, Awake Neuro motor strength exam: Left Upper Extremity: 3, Right Upper Extremity: 3, Left Lower Extremity: 3, Right Lower Extremity: 3 - Psychiatric Exam Psychiatric exam: Normal Affect, Normal Mood - Skin Skin Exam: Dry, Intact, Normal Color Assessment and Plan (1) CVA (cerebral vascular accident) Assessment & Plan: plan for physical, occupational therapy DC date for friday family agreeable Status: Acute
--- NOTE | 2018-09-23 13:16 | CP.PCM.PN ---
Subjective - Date & Time of Evaluation Date of Evaluation: 09/21/18 Time of Evaluation: 20:05 - Subjective Subjective: no acute complaints of pain Objective - Vital Signs/Intake and Output Vital Signs (last 24 hours): Temp Pulse Resp BP Pulse Ox 97.9 F 53 L 19 113/57 L 96 09/23/18 08:19 09/23/18 08:32 09/23/18 08:19 09/23/18 08:32 09/23/18 08:19 - Medications Medications: Current Medications Acetaminophen (Tylenol 325mg Tab) 650 mg PO Q6 PRN PRN Reason: .Pain (4-10) Albuterol/Ipratropium (Duoneb 3 Mg/0.5 Mg (3 Ml) Ud) 3 ml IH Q6 PRN PRN Reason: Cough and congestion Aspirin (Aspirin) 325 mg PO DAILY [facility] Last Admin: 09/23/18 08:33 Dose: 325 mg Atorvastatin Calcium (Lipitor) 40 mg PO HS [facility] Last Admin: 09/22/18 21:48 Dose: 40 mg Budesonide (Pulmicort Respules) 0.5 mg INH Q12 [facility] Last Admin: 09/23/18 07:50 Dose: 0.5 mg Clopidogrel Bisulfate (Plavix) 75 mg PO DAILY [facility] Last Admin: 09/23/18 08:33 Dose: 75 mg Docusate Sodium (Colace) 100 mg PO BID PRN PRN Reason: Constipation Last Admin: 09/18/18 17:28 Dose: 100 mg Enoxaparin Sodium (Lovenox) 40 mg SC DAILY [facility]; Protocol Last Admin: 09/23/18 08:33 Dose: 40 mg Guaifenesin/Dextromethorphan (Robitussin Dm) 5 ml PO Q4 PRN PRN Reason: Cough Insulin Detemir (Levemir) 6 units SC ACB [facility] Last Admin: 09/23/18 06:58 Dose: 6 unit Insulin Human Lispro (Humalog) 0 units SC [facility]; Protocol Last Admin: 09/23/18 12:48 Dose: Not Given Lisinopril (Zestril) 10 mg PO DAILY [facility] Last Admin: 09/23/18 08:32 Dose: 10 mg Metformin HCl (Glucophage) 500 mg PO BIDWM [facility] Last Admin: 09/23/18 08:32 Dose: 500 mg Metoprolol Tartrate (Lopressor) 50 mg PO BID [facility] Last Admin: 09/23/18 08:32 Dose: 50 mg Montelukast Sodium (Singulair) 10 mg PO HS [facility] Last Admin: 09/22/18 21:48 Dose: 10 mg Multivitamins/Minerals (Therapeutic-M Tab) 1 tab PO DAILY [facility] Last Admin: 09/23/18 08:32 Dose: 1 tab Pantoprazole Sodium (Protonix Ec Tab) 40 mg PO DAILY [facility] Last Admin: 09/23/18 08:33 Dose: 40 mg Ranolazine (Ranexa) 500 mg PO BID [facility] Last Admin: 09/23/18 08:33 Dose: 500 mg Fluticasone/Salmeterol (Advair Diskus 250/50) 1 puff IH BID [facility] Last Admin: 09/23/18 08:32 Dose: 1 puff Sitagliptin Phosphate (Januvia) 100 mg PO DAILY [facility] Last Admin: 09/23/18 08:32 Dose: 100 mg - Labs Labs: 09/20/18 05:30 09/20/18 05:30 - Constitutional Appears: Well - Head Exam Head Exam: ATRAUMATIC, NORMAL INSPECTION, NORMOCEPHALIC - Eye Exam Eye Exam: EOMI, Normal appearance, PERRL Pupil Exam: NORMAL ACCOMODATION - ENT Exam ENT Exam: Mucous Membranes Moist, Normal Exam - Neck Exam Neck Exam: Full ROM, Normal Inspection - Respiratory Exam Respiratory Exam: Clear to Ausculation Bilateral, NORMAL BREATHING PATTERN - Cardiovascular Exam Cardiovascular Exam: REGULAR RHYTHM - GI/Abdominal Exam GI & Abdominal Exam: Soft, Normal Bowel Sounds - Rectal Exam Rectal Exam: NORMAL INSPECTION - Exam External exam: NORMAL EXTERNAL EXAM - Extremities Exam Extremities Exam: Full ROM, Normal Capillary Refill, Normal Inspection - Neurological Exam Neurological Exam: Alert, Awake Neuro motor strength exam: Left Upper Extremity: 3, Right Upper Extremity: 3, Left Lower Extremity: 3, Right Lower Extremity: 3 Additional comments: left sided neglect - Psychiatric Exam Psychiatric exam: Normal Affect, Normal Mood - Skin Skin Exam: Dry Assessment and Plan (1) CVA (cerebral vascular accident) Assessment & Plan: plan for physical, occupational rec therapy range of motion, strengthening, transfers and gait training Status: Acute
--- NOTE | 2018-09-23 14:04 | CP.PCM.CON ---
History of Present Illness - History of Present Illness History of Present Illness: Neurology Consultation Note: Consult requested by Dr. Connolly Mrs. Villa is a 67-year-old woman with a past medical history of HTN, DM, CAD, CABG, who is currently admitted to acute rehab after suffering a stroke that resulted in visual changes and dizziness. She complains of mostly having difficulty in seeing on the left side. Review of Systems - Review of Systems All systems: reviewed and no additional remarkable complaints except Past Patient History - Past Medical History & Family History Past Medical History?: Yes - Past Social History Smoking Status: Never Smoked - CARDIAC Hx Hypertension: Yes - PULMONARY Hx Respiratory Disorders: Yes Hx Asthma: Yes Hx Bronchitis: No Hx Chronic Obstructive Pulmonary Disease (COPD): Yes Hx Emphysema: No Hx Lung Cancer: No Hx Pneumonia: Yes Hx Pulmonary Edema: No Hx Pulmonary Embolism: No Hx Respiratory Aspiration: No Hx Respiratory Tract Infection: No Hx Sleep Apnea: No Hx Tuberculosis: No - NEUROLOGICAL Hx Neurological Disorder: Yes Hx Alzheimer's Disease: No HX Cerebrovascular Accident: Yes Hx Dementia: No Hx Dizziness: Yes Hx Meningitis: No Hx Migraine: No Hx Multiple Sclerosis: No Hx Paralysis: No Hx Parkinson's Disease: No Hx Seizures: No Hx Syncope: No Hx Transient Ischemic Attacks (TIA): No Hx Vertigo: No Other/Comment: SCIATA RIGHT SIDE AND BACK - HEENT Hx HEENT Problems: Yes Hx Blind: No Hx Cataracts: Yes Hx Deafness: No Hx Difficulty Chewing: No Hx Epistaxis: No Hx Glaucoma: No Hx Macular Degeneration: No Hx Sinusitis: No - RENAL Hx Chronic Kidney Disease: No Hx Dialysis: No Hx Kidney Stones: No Hx Neurogenic Bladder: No Hx Pyelonephritis: No Hx Renal (Kidney) Cancer: No Hx Renal Failure: No - ENDOCRINE/METABOLIC Hx Diabetes Mellitus Type 2: Yes - HEMATOLOGICAL/ONCOLOGICAL Hx Blood Disorders: No Hx AIDS: No Hx Anemia: No Hx Blood Transfusions: Yes Hx Blood Transfusion Reaction: No Hx Bruising: No Hx Cancer: No Hx Chemotherapy: No Hx Cirrhosis: No Hx Gum Bleeding: No Hx Hemophilia: No Hx Hepatitis A: No Hx Hepatitis B: No Hx Hepatitis C: No Hx Human Immunodeficiency Virus (HIV): No Hx Leukemia: No Hx Metastesis: No Hx Shingles: No Hx Sickle Cell Disease: No Hx Unexplained Bleeding: No Hx von Willebrand's Disease: No - INTEGUMENTARY Hx Dermatological Problems: Yes (FUNGUS FEET) Hx Basil Cell: No Hx Lester: No Hx Cellulitis: No Hx Eczema: No Hx Melanoma: No Hx Psoriasis: No Hx Squamous Cell: No - MUSCULOSKELETAL/RHEUMATOLOGICAL Hx Musculoskeletal Disorders: No Hx Arthritis: Yes Hx Back Pain: Yes Hx Degenerative Joint Disease: No Hx Falls: No Hx Fractures: No Hx Gout: No Hx Herniated Disk: No Hx Myasthenia Gravis: No Hx Osteoarthritis: No Hx Osteomyelitis: No Hx Osteoporosis: No Hx Rhabdomyolysis: No Hx Rheumatoid Arthritis: No Hx Spinal Stenosis: No Hx Unsteady Gait: Yes - GASTROINTESTINAL Hx Gastrointestinal Disorders: No Hx Bowel Surgery: Yes Hx Clostridium Difficile: No Hx Colitis: No Hx Colostomy: No Hx Constipation: Yes Hx Crohn's Disease: No Hx Diarrhea: No Hx Diverticulitis: No Hx Esophageal Varices: No Hx Fatty Liver Disease: No Hx Gall Bladder Disease: No Hx Gastritis: Yes Hx Gastroesophageal Reflux: Yes Hx Hemorrhoids: No Hx Ileostomy: No Hx Irritable Bowel: No Hx Liver Failure: No Hx Nausea: No Hx Pancreatitis: No HX Swallowing Problems: No Hx Ulcer: No Hx Vomiting: No Other/Comment: gb removed - GENITOURINARY/GYNECOLOGICAL Hx Genitourinary Disorders: No Hx Bladder Cancer: No Hx Bladder Stone: No Hx Cervical Cancer: No Hx Hematuria: No Hx Incontinence: No Hx Ovarian Cancer: No Hx Postmenopausal Bleeding: No Hx Reproductive Disorders: No Hx Sexually Transmitted Disorders: No Hx Uterine Cancer: No Hx Urinary Tract Infection: No - PSYCHIATRIC Hx Psychophysiologic Disorder: No Hx Anxiety: Yes Hx Bipolar Disorder: No Hx Depression: No Hx Emotional Abuse: No Hx Hallucinations: No Hx Panic Symptoms: No Hx Paranoia: No Hx Post Traumatic Stress Disorder: No Hx Psychosis: No Hx Physical Abuse: No Hx Schizophrenia: No Hx Sexual Abuse: No Hx Substance Use: No - SURGICAL HISTORY Hx Surgeries: Yes Hx Abdominal Aortic Aneurysm Repair: No Hx Amputation: No Hx Angiogram: No Hx Angioplasty: No Hx Appendectomy: No Hx Arteriovenous Shunt: No Hx Arthroscopy: No Hx Bile Duct Stent: No Hx Breast Biopsy: No Hx Cataract Extraction: No Hx Cardiac Catheterization: Yes Hx Carotid Endarterectomy: No Hx Section: No Hx Cholecystectomy: Yes Hx Coronary Artery Bypass Graft: No Hx Coronary Stent: No Hx Dilation and Curettage: No Hx Eye Surgery: No Hx Femoral-Popliteal Bypass Graft: No Hx Gastric Bypass Surgery: No Hx Herniorrhaphy: No Hx Hysterectomy: No Hx Joint Replacement: No Hx Kidney Transplant: No Hx Liver Transplant: No Hx Mastectomy: No Hx Musculoskeletal Surgery: No Hx Open Heart Surgery: Yes Hx Open Reduction Internal Fixation: No Hx Orthopedic Surgery: No Hx Parathyroidectomy: No Hx Penile Implant: No Hx Pulmonary Surgery: No Hx Splenectomy: No Hx Thyroidectomy: No Hx Tonsillectomy: No Hx Tubal Ligation: No Hx Valve Replacement: No Hx Vascular Surgery: No Hx Vascular Access Device: No Other/Comment: SOMETHING ON RIGHT SIDE OF ABDOMEN; CAN'T EXPLAIN PER DAUGHTER; ONLY RECEIVED 2 SUTURES - ANESTHESIA Hx Anesthesia: Yes Hx Anesthesia Reactions: No Hx Malignant Hyperthermia: No Has any member of the family had a problem w/ anesthesia?: No Meds Allergies/Adverse Reactions: Allergies Allergy/AdvReac Type Severity Reaction Status Date / Time No Known Allergies Allergy Verified 05/24/15 07:30 - Medications Medications: Current Medications Acetaminophen (Tylenol 325mg Tab) 650 mg PO Q6 PRN PRN Reason: .Pain (4-10) Albuterol/Ipratropium (Duoneb 3 Mg/0.5 Mg (3 Ml) Ud) 3 ml IH Q6 PRN PRN Reason: Cough and congestion Aspirin (Aspirin) 325 mg PO DAILY [facility] Last Admin: 09/23/18 08:33 Dose: 325 mg Atorvastatin Calcium (Lipitor) 40 mg PO HS [facility] Last Admin: 09/22/18 21:48 Dose: 40 mg Budesonide (Pulmicort Respules) 0.5 mg INH Q12 [facility] Last Admin: 09/23/18 07:50 Dose: 0.5 mg Clopidogrel Bisulfate (Plavix) 75 mg PO DAILY [facility] Last Admin: 09/23/18 08:33 Dose: 75 mg Docusate Sodium (Colace) 100 mg PO BID PRN PRN Reason: Constipation Last Admin: 09/18/18 17:28 Dose: 100 mg Enoxaparin Sodium (Lovenox) 40 mg SC DAILY [facility]; Protocol Last Admin: 09/23/18 08:33 Dose: 40 mg Guaifenesin/Dextromethorphan (Robitussin Dm) 5 ml PO Q4 PRN PRN Reason: Cough Insulin Detemir (Levemir) 6 units SC ACB [facility] Last Admin: 09/23/18 06:58 Dose: 6 unit Insulin Human Lispro (Humalog) 0 units SC ACHS [facility]; Protocol Last Admin: 09/23/18 12:48 Dose: Not Given Lisinopril (Zestril) 10 mg PO DAILY [facility] Last Admin: 09/23/18 08:32 Dose: 10 mg Metformin HCl (Glucophage) 500 mg PO BIDWM [facility] Last Admin: 09/23/18 08:32 Dose: 500 mg Metoprolol Tartrate (Lopressor) 50 mg PO BID [facility] Last Admin: 09/23/18 08:32 Dose: 50 mg Montelukast Sodium (Singulair) 10 mg PO HS [facility] Last Admin: 09/22/18 21:48 Dose: 10 mg Multivitamins/Minerals (Therapeutic-M Tab) 1 tab PO DAILY [facility] Last Admin: 09/23/18 08:32 Dose: 1 tab Pantoprazole Sodium (Protonix Ec Tab) 40 mg PO DAILY [facility] Last Admin: 09/23/18 08:33 Dose: 40 mg Ranolazine (Ranexa) 500 mg PO BID [facility] Last Admin: 09/23/18 08:33 Dose: 500 mg Fluticasone/Salmeterol (Advair Diskus 250/50) 1 puff IH BID [facility] Last Admin: 09/23/18 08:32 Dose: 1 puff Sitagliptin Phosphate (Januvia) 100 mg PO DAILY [facility] Last Admin: 09/23/18 08:32 Dose: 100 mg Physical Exam - Constitutional Appears: Well - Head Exam Head Exam: ATRAUMATIC, NORMAL INSPECTION, NORMOCEPHALIC - Eye Exam Eye Exam: EOMI, Normal appearance, PERRL Pupil Exam: NORMAL ACCOMODATION, PERRL - ENT Exam ENT Exam: Mucous Membranes Moist, Normal Exam - Neck Exam Neck exam: Positive for: Normal Inspection - Respiratory Exam Respiratory Exam: Clear to Auscultation Bilateral, NORMAL BREATHING PATTERN - Cardiovascular Exam Cardiovascular Exam: REGULAR RHYTHM, +S1, +S2 - GI/Abdominal Exam GI & Abdominal Exam: Normal Bowel Sounds, Soft. 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 - Psychiatric Exam Psychiatric exam: Normal Affect, Normal Mood - Skin Skin Exam: Dry, Intact, Normal Color, Warm Results - Vital Signs Recent Vital Signs: Last Vital Signs Temp 97.9 F 09/23/18 08:19 Pulse 53 L 09/23/18 08:32 Resp 19 09/23/18 08:19 BP 113/57 L 09/23/18 08:32 Pulse Ox 96 09/23/18 08:19 - Labs Result Diagrams: 09/20/18 05:30 09/20/18 05:30 Labs: Laboratory Results - last 24 hr 09/22/18 09/22/18 09/23/18 15:32 20:48 06:38 POC Glucose (mg/dL) 107 141 H 140 H 09/23/18 12:00 POC Glucose (mg/dL) 193 H Assessment & Plan (1) CVA (cerebral vascular accident) Assessment and Plan: Will continue current medications and obtain repeat non-contrast CT head for further evaluation. Thank you for this consultation. Status: Acute
[2018-09-24 06:33] LABS: HEMOGLOBIN 13.7 g/dL (12.0-16.0); MEAN CELL VOLUME 85.1 fl (81.0-99.0); MEAN CORPUSCULAR HEMOGLOBIN 28.4 pg (27.0-31.0); MEAN CORPUSCULAR HGB CONC 33.4 g/dL (33.0-37.0); RBC 4.82 Mil/uL (3.80-5.20); RED CELL DISTRIBUTION WIDTH 13.1 % (11.5-14.5); WHITE BLOOD COUNT 11.1 K/uL (4.8-10.8)
[2018-09-24 06:50] LABS: CALCIUM 9.8 mg/dL (8.4-10.2)
[2018-09-24] MEDS: Insulin Detemir 100 Units/ml Inj SC SCH (06:58)
[2018-09-24] MEDS: Insulin Lispro (humaLOG) 100 Units/ml Inj SC SCH ×4 (06:59→21:23)
[2018-09-24] MEDS: Budesonide 0.5 mg/2 ml Inhal Susp UD INH SCH ×2 (07:19→19:21)
[2018-09-24] MEDS: Enoxaparin 40 mg Syringe SC SCH (09:08)
[2018-09-24] MEDS: Ranolazine 500 mg Extended Release Tablets PO SCH ×2 (09:10→17:20)
[2018-09-24] MEDS: Multivitamin With Minerals Tab PO SCH (09:11)
[2018-09-24] MEDS: Pantoprazole 40 mg EC Tab PO SCH (09:11)
[2018-09-24] MEDS: Fluticasone-Salmeterol 250-50mcg Diskus IH SCH ×2 (09:11→17:18)
[2018-09-24 23:50] VITALS: RESP 20
--- NOTE | 2018-09-25 01:08 | PN ---
DATE: 09/24/2018 SUBJECTIVE: The patient is seen today, 09/24/2018. She is not in any cardiopulmonary distress. The patient is cooperative to physical therapy and occupational therapy. PHYSICAL EXAMINATION: VITAL SIGNS: Blood pressure is 114/66, temperature 97, respiratory rate 18 and pulse 65. HEENT: Pupils equal, reactive to light. Normal-appearing mucosa of the conjunctivae, oropharynx and nasal membrane mucosa. NECK: Supple. No JVD. No carotid bruit. No lymph node. No thyromegaly. CHEST AND LUNGS: Bilateral symmetrical expansion. Good air exchange. No rales, no rhonchi. CARDIOVASCULAR SYSTEM: PMI not localized. S1, S2. No additional sounds. ABDOMEN: Normoactive bowel sounds. No tenderness. No organomegaly. No masses. EXTREMITIES: No cyanosis, no clubbing, no edema. CENTRAL NERVOUS SYSTEM: Alert, awake, oriented x2, moves all extremities equally, and the patient has left-sided visual field defect. ASSESSMENT: 1. Cerebrovascular accident. 2. Hypertension. 3. Hypercholesterolemia. 4. Type 2 diabetes mellitus. PLAN: Continue current medications and physical therapy and occupational therapy. Follow Neurology recommendations. Breanna Connolly MD
[2018-09-25] MEDS: Insulin Lispro (humaLOG) 100 Units/ml Inj SC SCH (07:05)
[2018-09-25] MEDS: Insulin Detemir 100 Units/ml Inj SC SCH (07:19)
[2018-09-25 08:11] VITALS: PULSE 63; TEMP 96.4; O2SAT 99
[2018-09-25] MEDS: Budesonide 0.5 mg/2 ml Inhal Susp UD INH SCH (08:14)
[2018-09-25] MEDS: Ranolazine 500 mg Extended Release Tablets PO SCH (08:47)
[2018-09-25] MEDS: Fluticasone-Salmeterol 250-50mcg Diskus IH SCH (08:47)
[2018-09-25] MEDS: Enoxaparin 40 mg Syringe SC SCH (08:48)
[2018-09-25] MEDS: Multivitamin With Minerals Tab PO SCH (08:48)
[2018-09-25] MEDS: Pantoprazole 40 mg EC Tab PO SCH (08:48)
[2018-09-25 08:50] VITALS: BP 135/70
--- NOTE | 2018-09-27 03:12 | DS ---
REASON FOR ADMISSION: This is a 67-year-old female who was admitted to acute rehabilitation after CVA. COURSE OF HOSPITALIZATION: The patient was admitted to acute rehabilitation at [facility]. The patient was started on both occupational therapy and physical therapy. The patient has left visual field defect. The patient had physical medicine and rehabilitation consult done by Dr. Madden. The patient was continued on her medications, and she was cooperative to physical therapy and occupational therapy. The patient was discharged home to follow with her neurologist, Dr. Orourke as well as with her primary care physician, Dr. Hartman. The patient was discharged in a stable condition to continue current medications also. FINAL DIAGNOSES: 1. Cerebrovascular accident with left visual field defect, mostly temporal. 2. Type 2 diabetes mellitus. 3. Hypertension. 4. Hypercholesterolemia. 5. History of bronchial asthma. [facility] MD Mohsen
== END 2018-09-25 11:00 | disposition home health service (06) | DRG 57 ==
PROVIDERS: ADMIT Internal Medicine; ATTEND Internal Medicine
PROC: F07M6FZ Therapeutic Exercise Treatment of Musculoskeletal System - Whole Body using Assistive, Adaptive, Supportive or Protective Equipment (ICD-10-PCS; principal; 2018-09-17)
PROC: F08Z4FZ Home Management Treatment using Assistive, Adaptive, Supportive or Protective Equipment (ICD-10-PCS; 2018-09-17)
PROC: F08Z0ZZ Bathing/Showering Techniques Treatment (ICD-10-PCS; 2018-09-17)
PROC: F08Z1ZZ Dressing Techniques Treatment (ICD-10-PCS; 2018-09-17)
DX: I69.398 Other sequelae of cerebral infarction (principal); H53.40 Unspecified visual field defects; I10 Essential (primary) hypertension; I25.10 Atherosclerotic heart disease of native coronary artery without angina pectoris; R42 Dizziness and giddiness; H53.8 Other visual disturbances; J44.9 Chronic obstructive pulmonary disease, unspecified; K21.9 Gastro-esophageal reflux disease without esophagitis; Z87.01 Personal history of pneumonia (recurrent); Z90.49 Acquired absence of other specified parts of digestive tract; Z95.1 Presence of aortocoronary bypass graft; F41.9 Anxiety disorder, unspecified; H26.9 Unspecified cataract; K29.70 Gastritis, unspecified, without bleeding; K59.00 Constipation, unspecified; M19.90 Unspecified osteoarthritis, unspecified site; M54.9 Dorsalgia, unspecified; R26.81 Unsteadiness on feet; E11.9 Type 2 diabetes mellitus without complications; E78.00 Pure hypercholesterolemia, unspecified